=== PATIENT | male | born 1975 ===

== ENCOUNTER 2017-08-15 13:19 | Emergency (ER) | payer BC ==
[~2017-08-15] VITALS: Ht 182.9 cm; Wt 90.7 kg
--- NOTE | 2017-08-15 13:37 | ER Report ---
History and Physical Time Seen By MD: 13:24 Hx. of Stated Complaint: patient hurt left knee skiing HPI/ROS CHIEF COMPLAINT: Left knee injury HISTORY OF PRESENT ILLNESS: A shunt is a 41-year-old male coming by his , who presents the ED with complaint of left knee injury. He states that he was skiing about 2-1/2 hours ago and fell and twisted his left knee. He believes that his ski hit him in the side of his left lower leg as well and has noted some bruising and swelling in the lateral aspect of his lower leg. He has noticed some swelling of his knee. He has some difficulty bearing weight because it feels unstable. His not taking any medication for this but he has been applying ice. REVIEW OF SYSTEMS: Respiratory: No cough, no dyspnea. Cardiovascular: No chest pain, no palpitations. Gastrointestinal: No vomiting, no abdominal pain. Musculoskeletal: See history of present illness. Allergies: Coded Allergies: No Known Drug Allergies (Unverified , 08/15/17) Home Meds Active Scripts Hydrocodone Bit/Acetaminophen (NORCO 5-325 TABLET) 1 Each Tablet, 1 EACH PO Q4- 6H Y for PAIN, #12 TAB Prov:HUSSEIN PARDO PA-C 08/15/17 Reviewed Nurses Notes: Yes Old Medical Records Reviewed: Yes Constitutional Vital Sign - Last 24 Hours 08/15/17 08/15/17 08/15/17 08/15/17 13:25 13:27 13:30 13:49 Temp 98.6 Pulse 85 98 Resp 24 B/P (MAP) 143/101 143/101 (115) 151/103 (119) Pulse Ox 93 93 08/15/17 08/15/17 08/15/17 14:00 14:19 14:30 Pulse 85 B/P (MAP) 130/89 (103) 148/101 (117) Pulse Ox 94 Physical Exam General Appearance: The patient is alert, has no immediate need for airway protection and no current signs of toxicity. Patient appears to be in no acute distress. Respiratory: Chest is non tender, lungs are clear to auscultation. Cardiac: regular rate and rhythm Musculoskeletal: Neck: Neck is supple and non tender. There is swelling noted of the knee in general. He has pain primarily on the medial aspect and inferior knee area. He has full range of motion of the knee but with pain. He does have some laxity on his anterior drawer sign. Posterior drawer sign is normal. He has pain with valgus stress test. He also has pain with Ashlee's exam. PT and DP pulses are 2+ with normal capillary refill. Normal sensation. He does have a 0.5 cm diameter hematoma noted on the superior lateral left lower leg. There is some mild pain with palpation of this area. Skin: No rashes or lesions. DIFFERENTIAL DIAGNOSIS: After history and physical exam differential diagnosis was considered for knee injury including fracture, sprain, ligamentous or meniscal injury, contusion. This is an incomplete list. Medical Decision Making EKG/Imaging Imaging Left Knee and Tib/Fib Xrays: IMPRESSION: Depressed lateral tibial plateau fracture. Report Dictated By: Matthew Gresham MD at 08/15/2017 2:09 PM Report E-Signed By: Matthew Gresham MD at 08/15/2017 2:13 PM ED Course/Re-evaluation ED Course Will obtain left knee and tib-fib x-rays. 08/15/2017 2:39:13 pm - discussed x-ray results with patient. It appears that he does have a depressed lateral tibial plateau fracture. On exam he did have some laxity so it is likely that he might have some ligamentous injury with this. Discussed that he should see orthopedics within 1-2 days. He states that he would like to see them at his hometown [place], [place]. Discussed patient with Dr. Mendez, orthopedic surgeon, who states that this is fine to be seen in his hometown and will need a knee immobilizer and crutches. Decision to Disposition Date: Aug 15, 2017 Decision to Disposition Time: 14:40 Depart Departure Latest Vital Signs Vital Signs Date Time Temp Pulse Resp B/P (MAP) Pulse Ox O2 Delivery O2 Flow Rate FiO2 08/15/17 14:30 148/101 (117) 08/15/17 14:19 85 94 08/15/17 13:25 98.6 24 Impression: Primary Impression: Closed fracture of lateral portion of left tibial plateau Condition: Improved Disposition: HOME OR SELF-CARE [facility] New Scripts Hydrocodone Bit/Acetaminophen (NORCO 5-325 TABLET) 1 Each Tablet 1 EACH PO Q4-6H Y for PAIN, #12 TAB Prov: HUSSEIN PARDO PA-C 08/15/17 Patient Instructions: Crutch Instructions (ED), Knee Immobilizer (ED), Leg Fracture (ED) Additional Instructions: Rest, ice, elevate. Take pain medication as needed. Use knee brace and crutches. Follow-up with Orthopedic Surgery in 2 days. If having any worsening or concerning symptoms may return to the emergency department. RECORDING ARTIST/PA consult with MD: Verbally MD Consult Note: Dr. Mendez, Orthopedic Surgery Problem Qualifiers Primary Impression: Closed fracture of lateral portion of left tibial plateau Encounter type: initial encounter Qualified Codes: S82.122A - Displaced fracture of lateral condyle of left tibia, initial encounter for closed fracture HUSSEIN PARDO PA-C Aug 15, 2017 13:37
--- NOTE | 2017-08-15 14:17 | RADIOLOGY IMAGING REPORT ---
FACILITY: [facility] [place] PATIENT NAME: Javier Hillman : 1975 MR: [id number] V: [id number] EXAM DATE: ORDERING PHYSICIAN: HUSSEIN PARDO TECHNOLOGIST: Location: [facility] Patient: Javier Hillman : 1975 Visit/Account:[id number] Date of Sevice: 08/15/2017 INDICATION: fall skiing, med knee pain and swelling, lat leg hematoma. DATE: 08/15/2017 2:09 PM. TECHNIQUE: TIBIA FIBULA LEFT, KNEE 4 VIEW LEFT COMPARISON: None FINDINGS: Left tibia and fibula: The distal tibia and fibula are intact. Left knee: A comminuted fracture of the lateral tibial plateau is depressed. There is mild lateral ti lt of the patella. No joint effusion versus overlap with the quadriceps musculature. IMPRESSION: Depressed lateral tibial plateau fracture. Report Dictated By: Matthew Gresham MD at 08/15/2017 2:09 PM Report E-Signed By: Matthew Gresham MD at 08/15/2017 2:13 PM WSN:[id number]
--- NOTE | 2017-08-15 14:17 | RADIOLOGY IMAGING REPORT ---
FACILITY: [facility] [place] PATIENT NAME: Javier Hillman : 1975 MR: [id number] V: [id number] EXAM DATE: ORDERING PHYSICIAN: HUSSEIN PARDO TECHNOLOGIST: Location: [facility] - [place], [place] Patient: Javier Hillman : 1975 Visit/Account:[id number] Date of Sevice: 08/15/2017 INDICATION: fall skiing, med knee pain and swelling, lat leg hematoma. DATE: 08/15/2017 2:09 PM. TECHNIQUE: TIBIA FIBULA LEFT, KNEE 4 VIEW LEFT COMPARISON: None FINDINGS: Left tibia and fibula: The distal tibia and fibula are intact. Left knee: A comminuted fracture of the lateral tibial plateau is depressed. There is mild lateral ti lt of the patella. No joint effusion versus overlap with the quadriceps musculature. IMPRESSION: Depressed lateral tibial plateau fracture. Report Dictated By: Matthew Gresham MD at 08/15/2017 2:09 PM Report E-Signed By: Matthew Gresham MD at 08/15/2017 2:13 PM WSN:[id number]
[2017-08-15] MEDS ORDERED: HYDR-4309 PO (14:42)
[2017-08-15 15:32] VITALS: BP 146/94
[2017-08-15] MEDS ORDERED: ONDANSETRON 4 MG ODT TH SL ONE (18:30)
== END 2017-08-15 15:44 | disposition home or self-care (01) ==
LOC: ER 13:24
DX: S82.122A Displaced fracture of lateral condyle of left tibia, initial encounter for closed fracture (principal); W18.30XA Fall on same level, unspecified, initial encounter; Y93.23 Activity, snow (alpine) (downhill) skiing, snowboarding, sledding, tobogganing and snow tubing
CPT/HCPCS: 73564; 73590; 99283; L1830